=== PATIENT | female | born 1995 | race Two or more races ===

== ENCOUNTER 2022-05-04 19:40 | Emergency (ER) | payer MEDICAID, OTHER ==
[~2022-05-04] VITALS: Ht 149.9 cm; Wt 82.6 kg
[2022-05-04 19:40] VITALS: BP 137/88
[2022-05-04 20:25] LABS: Urine Bacteria FEW /hpf (None Seen); Urine Blood Negative /uL (Negative); Urine Specific Gravity 1.016 (1.001-1.035); Urine WBC 6 /hpf (0 - 5)
== END 2022-05-05 02:15 | disposition left against medical advice (07) ==
LOC: ER 19:40
DX: M79.10 Myalgia, unspecified site (principal); M54.50 Low back pain, unspecified; M54.6 Pain in thoracic spine; R51.9 Headache, unspecified; H57.11 Ocular pain, right eye; Z53.21 Procedure and treatment not carried out due to patient leaving prior to being seen by health care provider
CPT/HCPCS: 81001; 81025

== ENCOUNTER → 2022-05-05 15:16 | Emergency (ER) | payer MEDICAID ==
[~2022-05-05] VITALS: Ht 149.9 cm; Wt 82.6 kg
[2022-05-05 15:32] VITALS: BP 141/91
== END | disposition left against medical advice (07) ==
LOC: ER 15:16
DX: R51.9 Headache, unspecified (principal); Z53.21 Procedure and treatment not carried out due to patient leaving prior to being seen by health care provider